=== PATIENT | male | born 1970 | race Caucasian/White ===

== ENCOUNTER 2021-12-13 06:47 | Day surgery (SDC) | payer BC ==
[~2021-12-13 06:47] MED LIST: Lactated Ringers 1,000 ML IV SCH
[2021-12-13] MEDS ORDERED: Propofol 200 MG/20 ML SDV ONE (07:29)
[2021-12-13] MEDS ORDERED: fentaNYL 100 MCG/2 ML SDV ONE (07:29)
== END 2021-12-13 09:10 | disposition home or self-care (01) ==
LOC: MW.SDS 06:47
PROVIDERS: ATTEND Surgery
DX: Z12.11 Encounter for screening for malignant neoplasm of colon (principal); K64.8 Other hemorrhoids; I10 Essential (primary) hypertension; G62.9 Polyneuropathy, unspecified; Z79.899 Other long term (current) drug therapy; Z86.010 Personal history of colon polyps; Z98.890 Other specified postprocedural states
CPT/HCPCS: 82947; J2704; J3010; J7120